=== PATIENT | female | born 1970 | race Hispanic/Latino ===

== ENCOUNTER 2017-10-16 08:23 | Observation (INO) | payer OTHER ==
[~2017-10-16] VITALS: Ht 165.1 cm; Wt 98.9 kg
[2017-10-16 14:43] VITALS: BP 154/82
[2017-10-16] MEDS ORDERED: SODIUM CHLORIDE 0.9% 250ML 250 ML ONE (14:43)
[2017-10-16 15:00] VITALS: BP 154/82
[2017-10-16] MEDS: LEVOFLOXACIN 500MG/D5W 100ML IV SCH (15:10)
[2017-10-16 16:01] VITALS: BP 157/77
[2017-10-16] MEDS: METOPROLOL TARTRATE 25 MG TAB PO SCH ×2 (17:54→22:07)
[2017-10-16] MEDS: IBUPROFEN 400 MG TAB PO PRN (18:27)
[2017-10-16 20:00] VITALS: BP 125/69
[2017-10-17] VITALS (8 sets, daily range): BP systolic 106–142; BP diastolic 53–90
[2017-10-17] MEDS: METOPROLOL TARTRATE 25 MG TAB PO SCH ×3 (05:30→21:30)
[2017-10-17 09:40] LABS: INR 1.2; PROTHROMBIN TIME 14.3 seconds (11.9-14.5)
[2017-10-17 09:41] LABS: PARTIAL THROMBOPLASTIN TIME 28.4 seconds (23.8-35.5)
[2017-10-17] MEDS: LEVOFLOXACIN 500MG/D5W 100ML IV SCH (14:08)
[2017-10-17] MEDS ORDERED: ZOLPIDEM TARTRATE 5 MG TAB PO PRN (17:45)
[2017-10-17 18:31] LABS: CHOL/HDL RATIO 2.8 (3.0-3.6)
--- NOTE | 2017-10-17 20:00 | History and Physical ---
PRIMARY CARE PHYSICIAN: None. CHIEF COMPLAINT: Abdominal swelling. HISTORY OF PRESENT ILLNESS: A 47-year-old woman with no significant medical history, now developing abdominal swelling for the past 5 days. Denies any nausea, vomiting, diarrhea. Denies any abdominal pain. Denies any fevers, chills, sweats. Never had a colonoscopy before. Patient also has some trace leg swelling. She presented to [facility] urgent care, transitioned here for further evaluation and management. The imaging suggested peritoneal carcinomatosis. PAST MEDICAL HISTORY: None. PAST SURGICAL HISTORY: times 2. ALLERGIES: PER ELECTRONIC MEDICAL RECORD. FAMILY HISTORY: No history of cancer. SOCIAL HISTORY: Patient is . She has 2 children. No alcohol, illicits or cigarettes. She works as a coach operator. MEDICATIONS: Per electronic medical record. REVIEW OF SYSTEMS: Denies any dizziness, chest pain, fever, chills, nausea, vomiting, diarrhea, leg pain, back pain, headache, blurry vision. PHYSICAL EXAM VITAL SIGNS: Reviewed. GENERAL: A tired-appearing woman resting in bed. HEENT: Anicteric. Pupils midline. No lesions. CARDIOVASCULAR: Normal S1, S2. LUNGS: Moderate breath sounds. ABDOMEN: Soft, nondistended. Some increased fluid in the abdominal region. Nontender. Negative Toney sign. EXTREMITIES: Trace edema, bilateral. SKIN: Dry. PSYCHIATRIC: Flat affect. NEUROLOGIC: Alert and oriented times 3, moving all extremities. LABS: Reviewed. MEDICATIONS: Reviewed. ASSESSMENT: This is a 47-year-old woman. 1. Peritoneal carcinomatosis. 2. Ascites. 3. Fatty liver. 4. Obesity. 5. Tachycardia. 6. Insomnia. 7. Elevated blood pressure/hypertension. PLAN 1. Paracentesis is planned. 2. Cancer markers have been ordered. 3. Screen for diabetes. 4. Treat insomnia with Ambien. 5. Treat hypertension and tachycardia with beta-blockers. 6. Levaquin empirically. 7. Use SCD. 8. Disposition: Follow up paracentesis cancer markers. Job#: [id number] CQ
[2017-10-17] MEDS: BENZONATATE 100 MG CAP PO SCH (21:28)
[2017-10-18] MEDS: METOPROLOL TARTRATE 25 MG TAB PO SCH ×3 (05:15→20:55)
[2017-10-18 05:19] VITALS: BP 138/89
[2017-10-18 06:20] LABS: BASOPHILS % 0.3 % (0.0-1.0); EOSINOPHILS # (AUTO) 0.1 (0.0-0.4); EOSINOPHILS % 1.1 % (0.0-6.0); HEMATOCRIT 33.7 % (34.2-44.1); HEMOGLOBIN 11.3 g/dL (12.0-16.0); LYMPHOCYTES # (AUTO) 1.1 (1.0-3.2); LYMPHOCYTES % 10.7 % (18.0-39.1); MEAN CORPUSCULAR HEMOGLOBIN 29.8 pg (28-32); MEAN CORPUSCULAR HGB CONC 33.5 g/dL (31-35); MEAN CORPUSCULAR VOLUME 88.9 fL (81-99); MONOCYTES # (AUTO) 0.9 (0.2-0.8); MONOCYTES % 8.5 % (4.4-11.3); NEUTROPHILS # (AUTO) 8.2 (2.1-6.9); NEUTROPHILS % 78.9 % (38.7-80.0); PLATELET COUNT 387 x10e3/uL (140-360); RED BLOOD COUNT 3.79 x10e6/uL (3.6-5.1); RED CELL DISTRIBUTION WIDTH 12.2 % (11.7-14.4)
[2017-10-18 06:48] LABS: BLOOD UREA NITROGEN 8 mg/dL (7-26); BUN/CREATININE RATIO 11 (6-25); CALCIUM 9.5 mg/dL (8.4-10.2); CARBON DIOXIDE 24 mmol/L (22-29); CHLORIDE 103 mmol/L (98-107); EST GLOMERULAR FILTRATION RATE > 60 ML/MIN (60-); GLUCOSE 108 mg/dL (74-118); SODIUM 137 mmol/L (136-145)
[2017-10-18] MEDS: BENZONATATE 100 MG CAP PO SCH ×3 (07:38→20:55)
[2017-10-18 08:12] VITALS: BP 115/66
[2017-10-18 12:00] VITALS: BP 128/70
--- NOTE | 2017-10-18 12:47 | Diagnostic Imaging Report ---
PROCEDURE:US GUIDED PARACENTESIS COMPARISON:CT scan at an outside facility 10/16/2017. INDICATIONS:ASCITES [employer]: Renny Naranjo M.D. Sedation: None Additional medications: Lidocaine 1% for local anesthesia Estimated blood loss: Minimal Blood products administered: None Specimens: 1150 cc demetrius colored ascitic fluid Implant/graft: None Condition at completion: Stable Disposition: Return to floor FINDINGS: Informed consent for the procedure was obtained from the patient and documented in the medical record after discussion of risks and benefits. The patient was placed in a supine position and the right mid abdomen was prepped and draped in standard sterile fashion. 1% lidocaine was infiltrated into the skin and subcutaneous tissues for local anesthesia. Then under continuous sonographic guidance, a 5 [place] Wortal needle catheter was advanced into the ascitic fluid in the right midabdomen. A permanent sonographic image was stored in the medical record. A total of 1150 cc demetrius-colored fluid were evacuated by vacuum bottle after the catheter was advanced off the needle. The catheter was removed and a sterile dressing was applied. The patient tolerated the procedure well without immediate complication. CONCLUSION: Successful ultrasound-guided paracentesis with removal of 1150 cc demetrius colored fluid. Specimen was submitted for laboratory analysis as requested by the referring clinical team. Dictated by: Renny Naranjo M.D. on 10/18/2017 at 12:50 Electronically approved by: Renny Naranjo M.D. on 10/18/2017 at 12:50
[2017-10-18] MEDS: LEVOFLOXACIN 500MG/D5W 100ML IV SCH (12:58)
[2017-10-18 16:00] VITALS: BP 112/63
[2017-10-18] MEDS: IBUPROFEN 400 MG TAB PO PRN (16:27)
--- NOTE | 2017-10-18 19:31 | Progress Note ---
DATE: October 18, 2017 TIME OF SERVICE: 8:30 a.m. SUBJECTIVE: Overnight, no events. No complaints. REVIEW OF SYSTEMS: Denies any dizziness, chest pain, shortness of breath, fever, chills, nausea, vomiting, diarrhea, headache or blurred vision. PHYSICAL EXAMINATION: VITAL SIGNS: Reviewed. GENERAL APPEARANCE: A tired-appearing woman, resting in the bed. HEENT: Anicteric. CARDIOVASCULAR: Normal S1 and S2. LUNGS: Moderate breath sounds. ABDOMEN: Nontender. She has some edema in the abdominal region. EXTREMITIES: Trace edema. SKIN: Dry. PSYCHIATRIC: Normal affect. NEUROLOGIC: Alert and oriented times 3. Moving all extremities. LABS: Reviewed. MEDICATIONS: Reviewed. ASSESSMENT: A 47-year-old woman. 1. Peritoneal carcinomatosis. 2. Ascites. 3. Fatty liver. 4. Obesity. 5. Tachycardia. 6. Insomnia. 7. Elevated blood pressure/hypertension. PLAN: 1. Awaiting paracentesis. 2. Follow up cancer markers. 3. Continue medication regimen. 4. Await paracentesis and fluid analysis. Job#: [id number] LOVE
[2017-10-18 20:00] VITALS: BP 121/60
[2017-10-18 20:10] VITALS: BP 121/60
[2017-10-19] VITALS: BP 122/71
[2017-10-19 04:00] VITALS: BP 113/67
[2017-10-19] MEDS: METOPROLOL TARTRATE 25 MG TAB PO SCH (06:11)
[2017-10-19 08:03] VITALS: BP 105/58
--- NOTE | 2017-10-19 08:43 | Progress Note ---
DATE: October 19, 2017 Patient is seen and examined today. Patient appeared better after paracentesis. Clinically doing better. Fluid was sent for cytology. Pathology report is pending. Was 12.5 L removed. PHYSICAL EXAMINATION GENERAL: Alert, awake and communicative. HEENT: Normocephalic and atraumatic. Sclerae pink. Conjunctivae clear. NECK: Supple. CHEST: Clear to auscultation. CARDIOVASCULAR: Regular rate and rhythm. ABDOMEN: Soft. Mildly distended. EXTREMITIES: No edema. LABS AND IMAGING: Reviewed. ASSESSMENT AND PLAN: The patient has a history of abdominal distention with positive ascites. Tumor marker positive for CA125. Possibility of cancer. Peritoneal carcinomatosis. Cytology is pending. Discussed again with the patient and family in detail about differential diagnosis. I also talked about the course of workup in the future. Clinical condition is stable. Can be discharged and follow as an outpatient to discuss pathology report. At this point, will continue remaining care. Will follow the patient closely. Job#: [id number] JANETH
[2017-10-19] MEDS: BENZONATATE 100 MG CAP PO SCH (09:59)
--- NOTE | 2017-10-21 00:31 | Consultation ---
DATE OF CONSULTATION: October 19, 2017 She is a 47-year-old female with no significant past medical history except morbid obesity. She is admitted to the hospital with worsening abdominal pain and swelling. Symptoms were associated with fatigue, lethargy and tiredness. She also complains of trace leg edema. She went to urgent care. She had workup including CT of the abdomen, which showed ascites and peritoneal carcinomatosis. She was admitted to the hospital for further management. She is feeling lethargic, fatigued and tired. She is also complaining of poor appetite, abnormal pressure. She denies any recent weight loss. She is scheduled for paracentesis. PAST MEDICAL HISTORY: None. PAST SURGICAL HISTORY: . ALLERGIES: NKDA. MEDICATIONS: Reviewed. FAMILY HISTORY: No family history of any malignancy. SOCIAL HISTORY: No smoking, alcohol or drugs. REVIEW OF SYSTEMS: A 12-point review of systems as per HPI. PHYSICAL EXAMINATION GENERAL: Alert, awake and communicative. HEENT: Normocephalic and atraumatic. Sclerae pink. Conjunctivae clear. NECK: Supple. CARDIOVASCULAR: Regular rate and rhythm. ABDOMEN: Soft and nondistended. Fluid thrill positive. LOOM TECHNICIAN: Intact. EXTREMITIES: No clubbing, cyanosis or edema. LABS AND IMAGING: Reviewed. ASSESSMENT AND PLAN: The patient with no significant medical history admitted with abdominal distention. Workup so far shows ascites, peritoneal carcinomatosis on the scan. Computerized tomography scan did not show any liver or spleen abnormalities. RECOMMENDATIONS: We have already requested tumor markers, including CA125 and CEA level. They are pending. The patient is scheduled for paracentesis. Will send to pathology. The patient and family were discussed in detail the differential diagnosis. They agree with the plan of care. Further recommendations and treatment is per workup. Will follow the patient closely. So far, CT scan did not show any evidence of any other mass. Will follow the patient. Job#: [id number] JANETH
== END 2017-10-19 10:10 | disposition home or self-care (01) ==
LOC: FSED 08:23 → ERHOLD 14:08 → INTOOBSV 14:08 → MED/SURG 14:28
PROVIDERS: ADMIT Internal Medicine; ATTEND Internal Medicine
DX: C78.6 Secondary malignant neoplasm of retroperitoneum and peritoneum (principal); R18.0 Malignant ascites; C80.1 Malignant (primary) neoplasm, unspecified; K76.0 Fatty (change of) liver, not elsewhere classified; G47.00 Insomnia, unspecified; R00.0 Tachycardia, unspecified; R03.0 Elevated blood-pressure reading, without diagnosis of hypertension; E66.01 Morbid (severe) obesity due to excess calories; Z68.36 Body mass index [BMI] 36.0-36.9, adult
CPT/HCPCS: 36415; 49083; 71046; 71260; 74177; 74470; 76705; 80048; 80053; 80061; 80076; 81003; 81025; 82378; 83036; 85025; 85610; 85730; 86304; 87205; 88112; 88305; 88342; 99284; G0378; J1956; J7050